=== PATIENT | male | born 1980 | race Caucasian/White ===

== ENCOUNTER 2018-03-15 18:22 | Emergency (ER) | payer OTHER ==
[2018-03-15] MEDS: NS 1,000 ML IV (19:45)
[2018-03-15 19:47] LABS: BASO # 0.1 10^3/uL (0.0-0.2); BASO % 0.7 % (0.0-1.0); EOS # 0.2 10^3/uL (0.0-0.50); EOS % 1.5 % (0.0-3.0); HEMATOCRIT 48.8 % (42.0-52.0); IMMATURE GRANULOCYTE % 0.4 % (0-3.0); LYMPH # 2.3 10^3/uL (1.5-4.5); LYMPH % 21.4 % (24.0-44.0); MEAN CORPUSCULAR HEMOGLOBIN 30.7 pg (27.0-33.0); MEAN CORPUSCULAR HGB CONC 34.8 g/dl (32.0-36.5); MEAN CORPUSCULAR VOLUME 88.1 fl (80.0-96.0); MONO # 0.8 10^3/uL (0.0-0.8); MONO % 7.7 % (0.0-5.0); NEUTROPHILS # 7.4 10^3/uL (1.8-7.7); NEUTROPHILS % 68.3 % (36.0-66.0); PLATELET COUNT, AUTOMATED 298 10^3/uL (150-450); RED BLOOD COUNT 5.54 10^6/uL (4.30-6.10); RED CELL DISTRIBUTION WIDTH 12.7 % (11.5-14.5); WHITE BLOOD COUNT 10.8 10^3/uL (4.0-10.0)
[2018-03-15 19:59] LABS: ANION GAP 6 MEQ/L (8-16); BLOOD UREA NITROGEN 17 MG/DL (7-18); CALCIUM LEVEL 8.6 MG/DL (8.5-10.1); CARBON DIOXIDE LEVEL 26 MEQ/L (21-32); CHLORIDE LEVEL 108 MEQ/L (98-107); CREATININE FOR GFR 0.92 MG/DL (0.70-1.30); GLOMERULAR FILTRATION RATE > 60.0 (>60); GLUCOSE, FASTING 104 MG/DL (70-100); POTASSIUM SERUM 3.9 MEQ/L (3.5-5.1); SODIUM LEVEL 140 MEQ/L (136-145)
[2018-03-15 20:08] LABS: ABG BASE EXCESS -0.7 (-2.0-2.0); ABG HCO3 22.6 MEQ/L (22.0-26.0); ABG O2 SATURATION 96.5 % (95.0-99.0); ABG PARTIAL PRESSURE CO2 34.2 mmHg (35.0-45.0); ABG PARTIAL PRESSURE O2 81.2 mmHg (75.0-100.0); ABG STANDARD HCO3 23.8 MEQ/L (22.0-26.0); ABG TOTAL CO2 23.7 MEQ/L (22.0-29.0); ABG pH (ARTERIAL) 7.438 UNITS (7.350-7.450)
[2018-03-15] MEDS ORDERED: ISOVUE-370 76% 100ML VIAL (Q9967) As Ordered (20:36)
[2018-03-15] MEDS: LORazepam 2 MG/ML VIAL (J2060) IV (20:55)
[2018-03-15] MEDS ORDERED: METAL LOCK LOOP XX (21:45)
[2018-03-15] MEDS: clonazePAM 0.5 MG TAB PO (22:30)
== END 2018-03-15 22:33 | disposition home or self-care (01) ==
LOC: M ED 18:22
DX: R06.4 Hyperventilation (principal); F41.9 Anxiety disorder, unspecified; I10 Essential (primary) hypertension; F33.9 Major depressive disorder, recurrent, unspecified; F17.200 Nicotine dependence, unspecified, uncomplicated
CPT/HCPCS: Q9967